=== PATIENT | female | born 1995 | race Caucasian/White ===

== ENCOUNTER 2017-02-20 22:34 | Emergency (ER) | payer OTHER ==
[~2017-02-20] VITALS: Ht 172.7 cm; Wt 68.0 kg
--- NOTE | 2017-02-20 22:51 | ED GENERAL ADULT ---
History of Present Illness General Chief Complaint: General Adult Stated Complaint: HEART RACING, CHEST TIGHTNESS/ COLD/NUMB HANDS Source: patient Exam Limitations: no limitations Vital Signs & Intake/Output Vital Signs & Intake/Output Vital Signs Date Time Temp Pulse Resp B/P B/P Pulse O2 O2 Flow FiO2 Mean Ox Delivery Rate 02/21 0059 88 20 131/72 98 02/20 2244 97.7 93 20 134/84 98 Room Air ED Intake and Output 02/21 0000 02/20 1200 Intake Total Output Total Balance Patient 150 lb Weight Weight Reported by Patient Measurement Method Allergies Uncoded Allergies: CATS AND DOGS (Mild, RUNNY EYES, SNEEZING 02/20/17) Reconcile Medications Clotrimazole/Betamethasone Dip (Clotrimazole-Betamethasone Crm) 1 %-0.05 % CREAM..G. 1 RAJESH TOP BID RASH (Reported) apply to affected area(s) Ethynodiol D-Ethinyl Estradiol ([place]ovia 1-35E Tablet) 1 MG-35 MCG TABLET 1 TAB PO DAILY CONTROL (Reported) Triage Note: TRIAGE: PT TO ER WITH MOTHER C/C CHEST TIGHTNESS AND "MY LEFT HAND FELT LIKE IT WOULDN'T GET WARM AND WAS HARD TO MOVE". ONSET OF S/S APPROX 20 MIN FLYING [employer]. HAD EKG DONE IN [place] PRIOR TO TRIAGE. HAD BEEN AT WORK EARLIER AND FELT FINE ALL DAY. REPORTS SOME NAUSEA WHILE EN ROUTE TO HOSPITAL, -VOMITING. -SOB. -DIAPHORESIS. Triage Nurses Notes Reviewed? yes Onset: Abrupt Duration: minute(s): Timing: recent history Injury Environment: street Severity: mild Modifying Factors: Improves With: rest. Associated Symptoms: palpitations and both hand numbness and tingling : No Patient currently breastfeeds: No HPI: 21 yo woman family history of IHSS, presents with 45 minute history of palpitations and left hand numbness. She notes that she was driving home from work. She felt sudden onset of rapid heart beat. He left hand felt numbness and tingling. Her symptoms have lasted 45 minutes. The palpitations have resolved, but she still feels numbness and tingling of left hand. Past History Travel History Traveled to [place] past 21 day No Medical History Any Pertinent Medical History? see below for history Neurological: NONE EENT: NONE Cardiovascular: NONE Respiratory: NONE Gastrointestinal: NONE Hepatic: NONE Renal: NONE Musculoskeletal: NONE Psychiatric: NONE Endocrine: NONE Blood Disorders: NONE Cancer(s): NONE MANAGER LANGUAGE/Reproductive: NONE Surgical History Surgical History: none Psychosocial History What is your primary language Salvadorean Tobacco Use: Never used ETOH Use: occasional use Illicit Drug Use: denies illicit drug use Family History Comment: mother with IHSS, managed medically. Hx Contributory? No Review of Systems Review of Systems Constitutional: Reports: no symptoms. EENTM: Reports: no symptoms. Respiratory: Reports: no symptoms. Cardiovascular: Reports: no symptoms. GI: Reports: no symptoms. Genitourinary: Reports: no symptoms. Musculoskeletal: Reports: no symptoms. Skin: Reports: no symptoms. Neurological/Psychological: Reports: no symptoms. Hematologic/Endocrine: Reports: no symptoms. Immunologic/Allergic: Reports: no symptoms. All Other Systems: Reviewed and Negative Physical Exam Physical Exam General Appearance: well developed/nourished, mild distress Head: atraumatic, normal appearance Eyes: Bilateral: normal appearance. Ears, Nose, Throat: normal pharynx, normal ENT inspection Neck: normal inspection, supple, full range of motion Respiratory: normal breath sounds, chest non-tender, no respiratory distress, quiet respiration, lungs clear Cardiovascular: regular rate/rhythm, no murmurs, even with repositioning of patient. Gastrointestinal: normal bowel sounds, soft, non-tender, no organomegaly Back: normal inspection Extremities: normal inspection Neurologic/Psych: no motor/sensory deficits, awake, alert, oriented x 3 Skin: intact, normal color, warm/dry Core Measures ACS in differential dx? No CVA/TIA Diagnosis: No Severe Sepsis Present: No Septic Shock Present: No Progress Differential Diagnoses I considered the following diagnoses in my evaluation of the patient: costochondritis vs palpitations vs other. Plan of Care: Orders Procedure Date/time Status TROPONIN LEVEL 02/20 2315 Complete HUMAN BETA HCG SCREEN 02/20 2315 Complete ETHANOL 02/20 2315 Complete COMPREHENSIVE METABOLIC PANEL 02/20 2315 Complete CBC WITHOUT DIFFERENTIAL 02/20 2315 Complete EKG 02/21 2236 Active Laboratory Tests 02/20/17 2330: Anion Gap 9, Estimated GFR > 60, BUN/Creatinine Ratio 18.6, Glucose 115 H, Calcium 9.3, Total Bilirubin 0.4, AST 17, ALT 26, Alkaline Phosphatase 53, Troponin I < 0.01, Total Protein 6.6, Albumin 4.0, Globulin 2.6, Albumin/ Globulin Ratio 1.5, Total Beta HCG NEGATIVE, CBC w Diff NO MAN DIFF REQ, RBC 4.00 L, MCV 93.4, MCH 31.1 H, RDW 13.0, MPV 8.7, Gran % 65.0, Lymphocytes % 26.8, Monocytes % 6.6, Eosinophils % 1.3, Basophils % 0.3, Absolute Granulocytes 4.8, Absolute Lymphocytes 2.0, Absolute Monocytes 0.5, Absolute Eosinophils 0.1, Absolute Basophils 0, PUBS MCHC 33.3, Serum Alcohol < 10.0 02/20/17 2317: Serum Alcohol Cancelled Initial ED EKG: normal axis, normal intervals, normal p-waves, normal QRS complex, normal sinus rhythm Departure Departure Disposition: HOME OR SELF CARE Condition: Stable Clinical Impression Primary Impression: Palpitations Referrals: HAILEY TIDWELL MD Departure Forms: Customer Survey General Discharge Information Comments 02/21/17, 1am... discussed with Dr. Charles who will see patient in follow up for IHSS screening. pt feels better after ativan. Critical Care Note Critical Care Note Critical Care Time: non-applicable
[2017-02-20 23:48] LABS: ABSOLUTE BASOPHIL COUNT 0 /CUMM (0.0-0.2); ABSOLUTE EOSINOPHIL COUNT 0.1 /CUMM (0.0-0.7); ABSOLUTE GRANULOCYTE CT 4.8 /CUMM (1.4-6.5); ABSOLUTE MONOCYTE COUNT 0.5 /CUMM (0.10-0.60); BASOPHIL % 0.3 % (0.0-2.0); EOSINOPHIL % 1.3 % (0-5); HEMATOCRIT 37.3 % (37-47); MEAN CORPUSCULAR HGB 31.1 PG (27.0-31.0); MEAN CORPUSCULAR HGB CONC 33.3 G/DL (33.0-37.0); MEAN CORPUSCULAR VOLUME 93.4 FL (81.0-99.0); MEAN PLATELET VOLUME 8.7 FL (7.4-10.4); PLATELET COUNT 220 /CUMM (130-400); WHITE BLOOD CELL COUNT 7.4 /CUMM (4.8-10.8)
[2017-02-21] MEDS ORDERED: ZOVIA 1-35E TA1 EACH PO (00:58)
[2017-02-21] MEDS ORDERED: CLOTRIMAZOLE-BE15 GM TOP (00:58)
[2017-02-21 00:59] VITALS: BP 131/72
== END 2017-02-21 01:01 ==
LOC: ERH 22:34
PROVIDERS: Pediatrics
DX: R00.2 Palpitations (principal)
CPT/HCPCS: 93005; 93010; G0480